=== PATIENT | female | born 1970 | race Two or more races ===

== ENCOUNTER 2020-01-21 23:23 | Emergency (ER) | payer SELFPAY ==
[~2020-01-21] VITALS: Ht 157.5 cm; Wt 83.9 kg
--- NOTE | 2020-01-21 23:47 | Emergency Room Report ---
History of Present Illness General Chief Complaint: Hypertension Source: Patient Present Illness HPI This is a 49-year-old female with a history of high blood pressure but not on medication. She presents with chief complaint of high blood pressure. She was diagnosed with high blood pressure a year ago. She was on medication for it. She says she stopped about 3 months ago because she felt better. She presents tonight because she felt her blood pressure was high. She says she has some mild shortness of breath and did not feel well. No focal deficit. No chest pain. No nausea vomiting or diarrhea. No urinary complaint. Allergies: Coded Allergies: No Known Allergies (Unverified , 01/21/20) COVID-19 Screening Contact w/high risk pt: No Recent Travel to affected area: No Experienced COVID-19 symptoms?: No Patient History Past Medical History: see triage record, old chart reviewed Past Surgical History: none Pertinent Family History: none Social History: Denies: smoking Last Menstrual Period: na Now: No : 3 Para: 3 Immunizations: other Reviewed Nursing Documentation: PMH: Agreed; PSxH: Agreed Nursing Documentation-PMH Hx Hypertension: Yes Review of Systems Eye: Denies: eye pain, blurred vision ENT: Denies: ear pain, nose congestion, throat swelling Respiratory: Denies: cough, shortness of breath Cardiovascular: Denies: chest pain, palpitations Gastrointestinal: Denies: abdominal pain, diarrhea, nausea, vomiting Musculoskeletal: Denies: back pain, joint pain Skin: Denies: rash Neurological: Denies: headache, numbness Endocrine: Denies: increased thirst, increased urine Hematologic/Lymphatic: Denies: easy bruising All Other Systems: negative except mentioned in HPI Physical Exam Vital Signs Date Time Temp Pulse Resp B/P (MAP) Pulse Ox O2 Delivery O2 Flow Rate FiO2 01/21/20 23:24 98.1 71 16 181/93 (122) 94 Room Air Vitals with hypertension Sp02 EP Interpretation: reviewed, normal General Appearance: well appearing, no apparent distress, alert Head: normocephalic, atraumatic Eyes: bilateral eye PERRL, bilateral eye EOMI ENT: hearing grossly normal, normal pharynx Neck: full range of motion, supple, no meningismus Respiratory: chest non-tender, lungs clear, normal breath sounds Cardiovascular #1: regular rate, rhythm, no murmur Gastrointestinal: normal bowel sounds, non tender, no mass, no organomegaly, no bruit, non-distended Musculoskeletal: back normal, normal range of motion, gait/station normal Psychiatric: anxious Medical Decision Making Diagnostic Impression: Primary Impression: Hypertension Qualified Codes: I10 - Essential (primary) hypertension Additional Impression: UTI (urinary tract infection) Qualified Codes: N30.00 - Acute cystitis without hematuria ER Course Patient presents with hypertension. No evidence of endorgan damage. Will discharge home. Last Vital Signs Date Time Temp Pulse Resp B/P (MAP) Pulse Ox O2 Delivery O2 Flow Rate FiO2 01/21/20 23:24 98.1 71 16 181/93 (122) 94 Room Air Status: improved Disposition: HOME, SELF-CARE Condition: Stable Scripts Nitrofurantoin Monohyd/M-Cryst (Nitrofurantoin [place]-Mcr 100 mg) 100 Mg Capsule 100 MG ORAL Q12H, #14 CAP Prov: Yariel Garcia MD 01/22/20 Amlodipine Besylate (Norvasc) 10 Mg Tablet 10 MG ORAL DAILY, #90 TAB Prov: Yariel Garcia MD 01/22/20 Referrals: NOT CHOSEN [facility]/,REFERRING (PCP) Additional Instructions: Follow-up with your doctor in 7 days. Return if symptoms worsen. Yariel Garcia MD Jan 21, 2020 23:47
[2020-01-21 23:48] VITALS: BP 187/88
[2020-01-22 00:07] LABS: BASOPHILS % (AUTO) 1.1 % (0.0-2.0); EOSINOPHILS % (AUTO) 1.9 % (0.0-3.0); HEMATOCRIT 38.4 % (37.0-47.0); HEMOGLOBIN 13.9 G/DL (12.0-16.0); LYMPHOCYTES % (AUTO) 41.2 % (20.0-45.0); MEAN CORPUSCULAR VOLUME 87 FL (80-99); MONOCYTES % (AUTO) 8.1 % (1.0-10.0); NEUTROPHILS % (AUTO) 47.7 % (45.0-75.0); PLATELET COUNT 263 K/UL (150-450); RED BLOOD COUNT 4.44 M/UL (4.20-5.40); RED CELL DISTRIBUTION WIDTH 11.1 % (11.6-14.8); WHITE BLOOD COUNT 7.4 K/UL (4.8-10.8)
[2020-01-22 00:13] LABS: APPEARANCE,URINE CLEAR; BILIRUBIN, URINE NEGATIVE (NEGATIVE); COLOR,URINE PALE YELLOW; GLUCOSE, URINE (UA) NEGATIVE (NEGATIVE); KETONES,URINE NEGATIVE (NEGATIVE); NITRITE,URINE NEGATIVE (NEGATIVE); PH,URINE 7 (4.5-8.0); PROTEIN,URINE NEGATIVE (NEGATIVE); UROBILINOGEN,URINE NORMAL MG/DL (0.0-1.0)
[2020-01-22 00:16] LABS: ANION GAP 14 mmol/L (5-15); BLOOD UREA NITROGEN 16 mg/dL (7-18); CALCIUM 9.2 MG/DL (8.5-10.1); CARBON DIOXIDE 26 MMOL/L (21-32); CHLORIDE 106 MMOL/L (98-107); CREATININE 0.8 MG/DL (0.55-1.30); POTASSIUM 3.4 MMOL/L (3.5-5.1); SODIUM 146 MMOL/L (136-145)
[2020-01-22 00:42] LABS: LEUKOCYTE ESTERASE ,URINE 2+ (NEGATIVE)
[2020-01-22 00:56] VITALS: BP 159/79
[2020-01-22] MEDS ORDERED: NORVASC10 MG ORAL (01:16)
[2020-01-22] MEDS ORDERED: MACROBID100 MG ORAL (01:16)
[2020-01-22] MEDS ORDERED: cefTRIAXone 1 GM in NS 55 ML IVPB ONE (01:30)
[2020-01-22 01:52] VITALS: BP 152/79
== END 2020-01-22 01:52 | disposition home or self-care (01) ==
LOC: EMR 23:40
DX: I10 Essential (primary) hypertension (principal); N30.00 Acute cystitis without hematuria
CPT/HCPCS: 36415; 80048; 81001; 85025; 96365; 99284; J0696